=== PATIENT | female | born 1935 | race Caucasian/White ===

== ENCOUNTER 2017-05-26 10:53 | Outpatient (CLI) | payer MEDICARE, BC ==
[~2017-05-26] VITALS: Ht 157.5 cm; Wt 63.0 kg
[~2017-05-26 10:53] MED LIST: ASPIRIN 81M81 MG/TA2 PO; ASPIRIN E.C. 8181 MG PO; BRILINTA90 MG PO; CRESTOR 10MG10 MG PO; CRESTOR20 MG PO; CRESTOR40 MG; DETROL LA4 MG PO; DETROL LA4 PO; DIOVAN/HCT 12.51 TA1 PO; LEVOTHYROXIN0.075 MG PO; LEVOXYL0.05 MG PO; MOTRIN 200200 MG/TAB PO; NITROSTAT0.4 MG/TAB SL; PHENTERMINE15 MG PO; PROTONIX 40MG T40 MG PO; TOPROL XL100 MG PO; VITAMIN D31000 IU PO; VYTORIN 10 MG-41 TAB PO
[2017-05-26 11:13] VITALS: BP 137/62; PULSE 63; TEMP 97.5
== END 2017-05-26 13:24 | disposition home or self-care (01) ==
LOC: EUO 10:53
DX: M85.851 Other specified disorders of bone density and structure, right thigh (principal); M85.852 Other specified disorders of bone density and structure, left thigh
CPT/HCPCS: J3489

== ENCOUNTER 2020-02-17 07:01 | Day surgery (SDC) | payer MEDICARE, BC ==
[~2020-02-17] VITALS: Ht 157.5 cm; Wt 69.1 kg
[2020-02-17] VITALS (11 sets, daily range): BP systolic 114–183; BP diastolic 58–95; PULSE 53–75; TEMP 97.5–98.3
[2020-02-17 07:46] LABS: HEMATOCRIT 42.6 % (37.0-47.0); HEMOGLOBIN 13.7 g/dl (12.5-16.0); MEAN CELL VOLUME 95 fl (80.0-100.0); MEAN CORPUSCULAR HEMOGLOBIN 31 pg (27.0-31.0); MEAN CORPUSCULAR HGB CONC 32 g/dl (33.0-37.0); MEAN PLATELET VOLUME 9.7 fl (7.4-10.4); PLATELET COUNT 249 K/mm3 (130-400); RED BLOOD COUNT 4.48 M/mm3 (4.10-5.30); REDCELL DISTRIBUTION WIDTH-CV 13.6 % (11.5-14.5)
[2020-02-17 07:51] LABS: INR 0.9 (0.8-3.0); PROTHROMBIN TIME 9.9 SECONDS (9.7-12.8)
[2020-02-17 08:02] LABS: CALCIUM 9.4 mg/dL (8.4-10.2); CREATININE, serum 0.77 (0.52-1.25); POTASSIUM 4.1 mmol/L (3.4-5.0)
--- NOTE | 2020-02-17 09:05 | NUR ---
SEE [facility] FOR ALL MEDICATION ADMINISTRATION TIMES, INTRA AND POST SEDATION ASSESSMENTS
--- NOTE | 2020-02-17 09:50 | NUR ---
Pt arrived back from [facility] [employer] at this time. Vitals stable. R radial cath site clean, dry, et intact with no drainage or hematoma present at this time. Bed in low position, call light within reach, will continue to monitor.
--- NOTE | 2020-02-17 12:08 | NUR ---
R Radial site noted to have bleeding after initial removal of air from TR band, TR band reinflated and hemostasis achieved. No hematoma present, will continue to monitor.
== END 2020-02-17 14:52 | disposition home or self-care (01) ==
LOC: COL.CAR
PROVIDERS: Internal Medicine Cardiovascular Disease
DX: I25.10 Atherosclerotic heart disease of native coronary artery without angina pectoris (principal); I25.2 Old myocardial infarction; E78.5 Hyperlipidemia, unspecified; I10 Essential (primary) hypertension; Z79.82 Long term (current) use of aspirin
CPT/HCPCS: J1644; J2250; J3010

== ENCOUNTER → 2022-04-25 | Outpatient (CLI) | payer MEDICARE, BC | LOC: MC.RAD 07:02 | DX: Z12.31 Encounter for screening mammogram for malignant neoplasm of breast (principal) ==